=== PATIENT | female | born 1955 | race Caucasian/White ===

== ENCOUNTER 2019-09-06 10:16 | Emergency (ER) | payer OTHER ==
[2019-09-06 11:25] VITALS: BP 108/75
--- NOTE | 2019-09-06 11:55 | UC ---
Ear Complaint HPI - HPI Summary HPI Summary: 63-year-old woman comes in with a chief complaint of right ear pain. On for several days. Pain is worse when she pushes on her tragus on the right. It is also worse with chewing. There is some other pain on the right side of her jewish and face sometimes is worse with palpation. She has been taking some ibuprofen which has increased the pain. No fevers or chills. Does feel pressure in her sinuses on the right. No rash. - History of Current Complaint Chief Complaint: UCEar Stated Complaint: RT EAR COMPLAINT Time Seen by Provider: 09/06/19 11:28 Hx Last Menstrual Period: age 49 yrs Pain Intensity: 4 - Allergies/Home Medications Allergies/Adverse Reactions: Allergies Allergy/AdvReac Type Severity Reaction Status Date / Time No Known Allergies Allergy Verified 09/06/19 11:15 Home Medications: Home Medications Ibuprofen TAB* [Advil TAB*] 400 mg PO Q6H PRN 09/06/19 [History Confirmed ] L.acidoph,Paracasei, B.lactis [Probiotic] 1 each PO DAILY 09/06/19 [History Confirmed 09/06/19] Loratadine [Claritin] 10 mg PO DAILY PRN 09/06/19 [History Confirmed 09/06/19] PMH/Surg Hx/FS Hx/Imm Hx Previously Healthy: Yes Endocrine History: Hypothyroidism - Surgical History Surgical History: Yes Surgery Procedure, Year, and Place: neck fracture as child,. CHOLYCYSTECTOMY - Family History Known Family History: Negative: Cardiac Disease, Hypertension, Diabetes - Social History Alcohol Use: None Substance Use Type: None Smoking Status (MU): Never Smoked Tobacco - Immunization History Most Recent Influenza Vaccination: 2016 Most Recent Tetanus Shot: UTD Most Recent Pneumonia Vaccination: None Review of Systems All Other Systems Reviewed And Are Negative: Yes Constitutional: Positive: Negative Skin: Positive: Negative Eyes: Positive: Negative ENT: Positive: Ear Ache, Sinus Pain/Tenderness Respiratory: Positive: Negative Cardiovascular: Positive: Negative Gastrointestinal: Positive: Negative Motor: Positive: Negative Neurovascular: Positive: Negative Musculoskeletal: Positive: Negative Neurological: Positive: Negative Psychological: Positive: Negative Is Patient Immunocompromised?: No Physical Exam Triage Information Reviewed: Yes Appearance: Well-Appearing, No Pain Distress, Well-Nourished Vital Signs: Initial Vital Signs Temp 98.4 F 09/06/19 11:19 Pulse 68 09/06/19 11:19 Resp 18 09/06/19 11:19 BP 108/75 09/06/19 11:19 Pulse Ox 99 09/06/19 11:19 Vital Signs Reviewed: Yes Eye Exam: Normal Eyes: Positive: Conjunctiva Clear ENT: Positive: Pharynx normal, TMs normal, Other - Tragus is tender to palpation on the right side. There is some earwax in the distal ear canal. Eardrum appears normal. No signs of dental cause. No rash. Parotid gland is nontender and not swollen. The tenderness at the tragus does overlap to the TMJ on the right side. Neck: Positive: Supple Respiratory: Positive: Lungs clear, Normal breath sounds, No respiratory distress Cardiovascular: Positive: RRR Musculoskeletal: Positive: Strength Intact, ROM Intact Neurological: Positive: Alert, Muscle Tone Normal Psychological: Positive: Age Appropriate Behavior Skin Exam: Normal Ear Complaint Course/Dx - Course Course Of Treatment: We discussed the different possible causes of her pain. Given at the pain is worse with palpation of the right tragus and there is some cerumen in the distal ear canal will be treating for otitis externa. The right TMJ is also slightly tender patient will continue taking ibuprofen as needed. Do not see any rash at this time. I let the patient know that if she does get a rash she needs to get reevaluated and treated for shingles. We discussed oral antibiotics and this time the patient prefers to be on oral antibiotics. Patient sees a reevaluated if worse. Or changes or any questions or concerns. - Differential Dx/Diagnosis Provider Diagnosis: Right ear pain, Right otitis externa, Right facial pain Discharge ED - Sign-Out/Discharge Documenting (check all that apply): Patient Departure All imaging exams completed and their final reports reviewed: No Studies - Discharge Plan Condition: Stable Disposition: HOME Prescriptions: Amoxicillin PO (*) [Amoxicillin 875 MG (*)] 875 mg PO BID #20 tab Ofloxacin 0.3% (Ear Drop)* [Floxin 0.3% OTIC.JUANITA (Ear Drop)] 5 drop RIGHT EAR BID #1 btl Patient Education Materials: Otitis Externa (ED), Earache (ED) Referrals: Yahir CLINTON,Winnie Betancur [Primary Care Provider] - Additional Instructions: FOLLOW UP WITH YOUR DOCTOR IF NOT COMPLETELY IMPROVED. GET REEVALUATED SOONER IF NOT IMPROVING OR YOUR CONDITION WORSENS; PAIN, RASH, FEVER, YOU FEEL ILL OR ANY QUESTIONS OR CONCERNS - Billing Disposition and Condition Condition: STABLE Disposition: Home
== END 2019-09-06 12:07 | disposition home or self-care (01) ==
LOC: UCCORT 10:16
DX: H92.01 Otalgia, right ear (principal); H60.91 Unspecified otitis externa, right ear; R51 Headache
CPT/HCPCS: 99212; G0463